=== PATIENT | female | born 1940 | race American Indian/Alaskan Native ===

== ENCOUNTER 2017-08-14 09:51 | Day surgery (SDC) | payer OTHER ==
[~2017-08-14 09:51] MED LIST: WATER FOR IRRIG STERILE IR ONE
--- NOTE | 2017-08-14 13:30 | Anesthesia Day of Surgery ---
Anesthesia Day of Surgery - Day of Surgery Patient Examined: Yes Patient H&P Reviewed: Yes Patient is NPO: Yes Beta Blockers: Yes
--- NOTE | 2017-08-14 13:30 | Anesthesia Consultation ---
Anesthesia Consult and Med Hx Date of service: 08/14/17 - Airway Anesthetic Teeth Evaluation: Poor (some missing teeth) ROM Head & Neck: Adequate Mental/Hyoid Distance: Adequate Mallampati Class: Class III Intubation Access Assessment: Possibly Difficult - Pre-Operative Health Status ASA Pre-Surgery Classification: ASA3 Proposed Anesthetic Plan: MAC - Pulmonary Hx Smoking: No Hx Asthma: Yes COPD: Yes Home Oxygen Therapy: Yes (2 l/m) - Cardiovascular System Hx Hypertension: Yes Hx Coronary Artery Disease: Yes - Central Nervous System Hx Psychiatric Problems: Yes (dementia) - Gastrointestinal Hx Gastroesophageal Reflux Disease: Yes - Endocrine Hx Non-Insulin Dependent Diabetes: Yes - Other Systems Hx Cancer: No Hx Obesity: Yes (BMI 33.9)
[2017-08-14] MEDS ORDERED: NACL 0.9% 1000 ML 1,000 ML IV SCH (14:00)
[2017-08-14] MEDS ORDERED: DIPRIVAN 10 MG/ML IV ONE ×2 (14:10→14:51)
--- NOTE | 2017-08-14 15:08 | Operative Report ---
Operative Report Operative Report: Date of procedure: 08/14/2017 Procedure: Colonoscopy with Biopsies. Attending physician: Sebastien Hagan MD Education Assistant: Sebastien Hagan MD Indication: Patient is a 77-year-old female who presents for screening colonoscopy. Patient also has underlying history of chronic diarrhea that has been unremitting over the past 6 weeks. A colonoscopy serves to evaluate patient for colorectal cancer screening and to assess how underlying symptoms. Consent: Informed consent was obtained after advising the patient and family regarding nature of this procedure, its indications, potential benefits as well as possible complications including but not limited to bleeding perforation and adverse reaction to medication, infection as well as other cardiopulmonary complications. An informed written and verbal consent was then obtained after due opportunity was provided for questions and answers. Monitoring: Patient was monitored continuously with pulse oximetry and electrocardiographic recordings as well as blood pressure recordings. Vital signs remained stable throughout this procedure with no untoward events. Preoperative assessment: Patient was assessed immediately prior to this procedure for capacity to tolerate monitored anesthesia care and moderate sedation as well as general anesthesia. Patient's ASA classification is 3, Mallampati class is 2, Hyomental distance is 3. Instrument: ReplySend video colonoscope Medications: Propofol given intravenously in divided doses. For details please refer to anesthesia records. Description of procedure: Patient was placed in the left lateral decubitus position after achieving sedation, a digital rectal examination was performed following which the colonoscope was introduced into the anal verge and advanced to the cecum which was identified by the cecal valve, the appendiceal orifice, as well as by the cecal strap and direct transillumination. The colonoscope was subsequently withdrawn with careful inspection of all mucosal surfaces. Patient tolerated this procedure well and was subsequently taken to the recovery room. The following findings were noted. Findings: Patient had a few scattered diverticula in the sigmoid colon and descending colon, There was a small lipoma seen in the ascending colon, otherwise, the rest of the colon was normal with no mucosal lesions. There were areas where there was densely adherent thick liquid stool. Because of chronic diarrhea, biopsies were obtained from the sigmoid colon to rule out underlying microscopic colitis. On the retroflex view at the anal verge, patient had large prominent internal hemorrhoids. Impression: Small ascending colon lipoma. Mild diverticulosis. Internal hemorrhoids. Plan: Follow pathology report. Continue when necessary antidiarrheals needed. Follow patient clinically. Additional steps as needed may be taken in outpatient follow-up.
--- NOTE | 2017-08-14 15:09 | Discharge Summary ---
Short Stay Discharge Plan Activity: advance as tolerated Weight Bearing Status: Weight Bear as Tolerated Diet: regular Follow up with: EDNA ANGULO MD [Primary Care Provider] - 7 Days
[2017-08-14 15:24] VITALS: BP 142/69
== END 2017-08-14 15:28 | disposition home or self-care (01) ==
LOC: GIO 09:51
PROVIDERS: ATTEND Internal Medicine Gastroenterology
DX: D17.5 Benign lipomatous neoplasm of intra-abdominal organs (principal); K57.30 Diverticulosis of large intestine without perforation or abscess without bleeding; K64.8 Other hemorrhoids; E11.9 Type 2 diabetes mellitus without complications; I10 Essential (primary) hypertension; I25.10 Atherosclerotic heart disease of native coronary artery without angina pectoris; F03.90 Unspecified dementia, unspecified severity, without behavioral disturbance, psychotic disturbance, mood disturbance, and anxiety; K21.9 Gastro-esophageal reflux disease without esophagitis; E66.9 Obesity, unspecified; Z79.84 Long term (current) use of oral hypoglycemic drugs; Z68.33 Body mass index [BMI] 33.0-33.9, adult
CPT/HCPCS: 45380; 82962; 88305; J2704; J7030